=== PATIENT | female | born 1990 | race African-American/Black ===

== ENCOUNTER 2017-12-23 15:58 | Emergency (ER) | payer OTHER ==
[2017-12-23 16:08] VITALS: BP 139/79
--- NOTE | 2017-12-23 17:07 | ED Physician Documentation ---
PD HPI SKIN - Stated complaint Stated Complaint: R BREAST LUMP - Chief complaint Chief Complaint: General - History obtained from History obtained from: Patient - History of Present Illness Timing - onset: How many months ago (has noted a lump/firmness of tissue since February. It seems to be bigger the past few weeks. Not tender. No redness nor drainage. She was encouraged by friends/etc to get it checked, and so here today. No notable change in it the past few days per se.) Timing - duration: Months Timing - details: Gradual onset Location: Other (right medial breast with firm tissue area/lump. Has had prior breast reduction surgery few years ago and had not noted the lump right after surgery.) Quality / character: No: Itchy, Painful, Discolored, Draining Review of Systems Constitutional: denies: Fever, Chills Skin: denies: Rash PD PAST MEDICAL HISTORY - Past Medical History Cardiovascular: None Respiratory: None - Present Medications Home Medications: Ambulatory Orders Medication Instructions Recorded Confirmed Dextroamphetamine/Amphetamine 12/23/17 [Adderall 15 mg Tablet] Fluticasone [Flonase] 12/23/17 Medroxyprogesterone Acetate 12/23/17 12/23/17 [Depo-Provera] - Allergies Allergies/Adverse Reactions: Allergies Allergy/AdvReac Type Severity Reaction Status Date / Time nickel Allergy Rash Verified 12/23/17 16:08 thomas AdvReac Rash Verified 12/23/17 16:08 PD ED PE NORMAL - Vitals Vital signs reviewed: Yes - General General: Alert and oriented X 3, Well developed/nourished - Derm Derm: Normal color, Warm and dry, Other (right medial breast with area of firmness subcutaneously. Is not tender. No redness nor skin changes. It is adjacent to prior surgical scar (breast reduction) but not right at the scar line. Bedside U/S did not show any obvious abnormal tissue density nor cyst. ) Results - Vitals Vitals: Oxygen O2 Source Room air PD MEDICAL DECISION MAKING - ED course Complexity details: considered differential (It feels lik efibrous tissue and bedside U/S limited shows breast tissue architecture. No obvious cyst nor abscess. ), d/w patient Departure - Departure Disposition: 01 Home, Self Care Clinical Impression: Breast lump in female, Fibrous breast lumps Condition: Stable Record reviewed to determine appropriate education?: Yes Follow-Up: HERACLIO MCCARTHY MD [Primary Care Provider] - Comments: This feels like just fibrous breast tissue. The bedside ultrasound showed just fibrous tissue without any appearance of cysts or abnormal density. Follow-up with your primary care if it continues to feel enlarged or gets tender red or swollen. Discharge Date/Time: 12/23/17 17:45
== END 2017-12-23 17:45 | disposition home or self-care (01) ==
LOC: ED 15:58
DX: N63.0 Unspecified lump in unspecified breast (principal)
CPT/HCPCS: 99282

== ENCOUNTER 2018-03-13 16:56 | Emergency (ER) | payer OTHER ==
[2018-03-13 17:48] LABS: BASOPHILS # (AUTO) 0.1 10^3/uL (0.0-0.1); BASOPHILS % (AUTO) 1.3 %; EOSINOPHILS # (AUTO) 0.1 10^3/uL (0.0-0.7); EOSINOPHILS % (AUTO) 1.3 %; HGB - HEMOGLOBIN 13.3 g/dL (12.0-16.0); LYMPHOCYTES # (AUTO) 2.7 10^3/uL (1.5-3.5); LYMPHOCYTES % (AUTO) 39.5 %; MEAN CORPUSCULAR HEMOGLOBIN 27.4 pg (27.0-31.0); MEAN CORPUSCULAR HGB CONC 31.8 g/dL (32.0-36.0); MEAN CORPUSCULAR VOLUME 86.4 fL (81.0-99.0); MEAN PLATELET VOLUME 7.2 fL (7.9-10.8); MONOCYTES # (AUTO) 0.5 10^3/uL (0.0-1.0); MONOCYTES % (AUTO) 7.3 %; NEUTROPHILS # (AUTO) 3.4 10^3/uL (1.5-6.6); NEUTROPHILS % (AUTO) 50.6 %; PLT - PLATELET COUNT 392 10^3/uL (130-450); RED BLOOD COUNT 4.86 10^6/uL (4.20-5.40); RED CELL DISTRIBUTION WIDTH 12.8 % (12.0-15.0); WHITE BLOOD COUNT 6.8 x10^3/uL (4.8-10.8)
[2018-03-13 18:00] LABS: BILIRUBIN,URINE NEGATIVE (NEGATIVE); GLUCOSE, URINE (UA) NEGATIVE (NEGATIVE); KETONES,URINE (UA) NEGATIVE (NEGATIVE); LEUKOCYTE ESTERASE, URINE NEGATIVE (NEGATIVE); NITRITE,URINE NEGATIVE (NEGATIVE); OCCULT BLOOD,URINE NEGATIVE (NEGATIVE); PROTEIN,URINE NEGATIVE (NEGATIVE); UROBILINOGEN,URINE 0.2 (NORMAL) E.U./dL (NORMAL)
[2018-03-13 18:03] LABS: ALBUMIN 4.4 g/dL (3.2-5.5); ALBUMIN/GLOBULIN RATIO 1.3 (1.0-2.2); BILIRUBIN,TOTAL 0.7 mg/dL (0.2-1.0); CALCIUM 9.1 mg/dL (8.5-10.3); CREATININE 0.8 mg/dL (0.4-1.0); TOTAL PROTEIN 7.8 g/dL (6.7-8.2)
[2018-03-13 18:04] LABS: CLARITY,URINE CLEAR (CLEAR); HCG UR QUAL NEGATIVE
--- NOTE | 2018-03-13 19:41 | ED Physician Documentation ---
PD HPI ABD PAIN - Stated complaint Stated Complaint: RIGHT SIDE PAIN - Chief complaint Chief Complaint: Abd Pain - History obtained from History obtained from: Patient - History of Present Illness Timing - onset: How many days ago (few days ago, had some nausea and vomiting and upper abd pain. Seen by PCP and was tender upper abd, so scheduled for US which will be this coming Tuesday (?). Concern for gallstones clinically. Has had persistent and today worse pain, so here for evaluation.) Timing - duration: Days (few) Timing - details: Abrupt onset, Still present, Waxing and waning Quality: Cramping, Aching, Pain Location: RUQ, Epigastric Radiation: No: Chest, Lower back, Upper back Worsened by: Eating, Position, Palpation. No: Breathing Associated symptoms: Nausea, Vomiting (several days ago at onset of it, but only for 1/2 day). No: Fever, Diarrhea Similar symptoms before: Has not had sx before Recently seen: Clinic (3 days ago with concern for gallstones and scheduled for outpatient US but was not going to be until later this week or such.) Review of Systems Constitutional: denies: Fever, Chills, Myalgias Nose: denies: Rhinorrhea / runny nose, Congestion Throat: denies: Sore throat Respiratory: denies: Cough GI: reports: Abdominal Pain, Nausea. denies: Constipation, Diarrhea : denies: Dysuria, Frequency, Discharge Skin: denies: Rash PD PAST MEDICAL HISTORY - Past Medical History Cardiovascular: None Respiratory: None - Present Medications Home Medications: Ambulatory Orders Medication Instructions Recorded Confirmed Dextroamphetamine/Amphetamine 20 mg PO DAILY 12/23/17 03/13/18 [Adderall 15 mg Tablet] Fluticasone [Flonase] 1 spray IN DAILY 12/23/17 03/13/18 Medroxyprogesterone Acetate 150 mg IM ONCE 12/23/17 03/13/18 [Depo-Provera] Famotidine 20 mg PO DAILY #30 tablet 03/13/18 Sucralfate [Carafate] 1 gm PO ACHS #20 tablet 03/13/18 Tramadol HCl 50 mg PO Q6H PRN #15 tablet 03/13/18 - Allergies Allergies/Adverse Reactions: Allergies Allergy/AdvReac Type Severity Reaction Status Date / Time nickel Allergy Rash Verified 03/13/18 17:09 thomas AdvReac Rash Verified 03/13/18 17:09 PD ED PE NORMAL - Vitals Vital signs reviewed: Yes - General General: Alert and oriented X 3, No acute distress, Well developed/nourished - HEENT HEENT: PERRL (nonicteric), Ears normal, Pharynx benign - Neck Neck: Supple, no meningeal sign, No adenopathy - Cardiac Cardiac: RRR, No murmur - Respiratory Respiratory: Clear bilaterally - Abdomen Abdomen: Normal bowel sounds, Soft, Non distended, No organomegaly, Other (tender epigastric and RUQ area with mild guarding but no percussion nor rebound tenderness. ) - Female Female : Deferred - Rectal Rectal: Deferred - Back Back: No CVA TTP - Derm Derm: Normal color, Warm and dry - Neuro Neuro: Alert and oriented X 3, No motor deficit, Normal speech Results - Vitals Vitals: Oxygen O2 Source Room air - Labs Labs: Laboratory Tests 03/13/18 03/13/18 03/13/18 17:41 17:43 17:43 WBC 6.8 RBC 4.86 Hgb 13.3 Hct 42.0 MCV 86.4 MCH 27.4 MCHC 31.8 L RDW 12.8 Plt Count 392 MPV 7.2 L Neut # (Auto) 3.4 Lymph # (Auto) 2.7 [place] # (Auto) 0.5 Eos # (Auto) 0.1 Baso # (Auto) 0.1 Absolute Nucleated RBC 0.01 Nucleated RBC % 0.1 Sodium 138 Potassium 3.9 Chloride 103 Carbon Dioxide 25 Anion Gap 10.0 BUN 14 Creatinine 0.8 Estimated GFR (MDRD) 106 Glucose 89 Calcium 9.1 Total Bilirubin 0.7 AST 25 ALT 24 Alkaline Phosphatase 52 Total Protein 7.8 Albumin 4.4 Globulin 3.4 Albumin/Globulin Ratio 1.3 Lipase 31 Urine Color YELLOW Urine Clarity CLEAR Urine pH 7.0 Ur Specific [place] 1.015 Urine Protein NEGATIVE Urine Glucose (UA) NEGATIVE Urine Ketones NEGATIVE Urine Occult Blood NEGATIVE Urine Nitrite NEGATIVE Urine Bilirubin NEGATIVE Urine Urobilinogen 0.2 (NORMAL) Ur Leukocyte Esterase NEGATIVE Ur Microscopic Review NOT INDICATED Urine Culture Comments NOT INDICATED Urine HCG, Qual NEGATIVE - Rads (name of study) abd U/S RUQ Radiology: Prelim report reviewed (normal gallbladder), See rad report PD MEDICAL DECISION MAKING - ED course Complexity details: reviewed results, considered differential (she declined IV meds and opted for oral meds. Consider gastritis vs pancreatitis vs gallbladder colic. ), d/w patient Departure - Departure Disposition: 01 Home, Self Care Clinical Impression: Duodenitis Abdominal pain Qualifiers: Abdominal location: right upper quadrant Qualified Code(s): R10.11 - Right upper quadrant pain Gastritis Qualifiers: Gastritis type: superficial Chronicity: acute Gastritis bleeding: without bleeding Qualified Code(s): K29.00 - Acute gastritis without bleeding Condition: Stable Record reviewed to determine appropriate education?: Yes Instructions: ED Gastritis Follow-Up: PHILIP Landon [Provider Group] Prescriptions: Famotidine 20 mg PO DAILY #30 tablet Sucralfate [Carafate] 1 gm PO ACHS #20 tablet Tramadol HCl 50 mg PO Q6H PRN #15 tablet PRN Reason: Pain Comments: Your blood tests are normal as is your gallbladder ultrasound. No signs of pancreatitis, liver problems, gallbladder problems. Presume then the ear pain is from irritation of the stomach or the initial part of the intestine (gastritis/duodenitis). This likely got irritated from the initial vomiting and illness you had at the beginning. We will treat this with some acid reducing medicine such as famotidine daily and something to coat the stomach (Carafate 4 times a day). To that add Tylenol or tramadol if needed for pains. This should heal up and be better over the next several days to week. Follow-up if not improved by the end of the week. Discharge Date/Time: 03/13/18 22:01
[2018-03-13] MEDS ORDERED: HYDROcod/ACETAM 5/325 MG TABLET PO STA (19:53)
[2018-03-13] MEDS ORDERED: MAG HYDROX/AL HYDROX/SIMETH 30 ML UDC PO STA (19:53)
[2018-03-13] MEDS ORDERED: FAMOTIDINE 20 MG TABLET PO STA (19:53)
[2018-03-13] MEDS ORDERED: ONDANSETRON ODT 4 MG TABLET TL STA (19:53)
--- NOTE | 2018-03-13 21:45 | Ultrasound Report ---
Reason: RUQ pain for few days Procedure Date: 03/13/2018 Accession Number: [id number] / [id number] Procedure: US - Abdomen Limited CPT Code: FULL RESULT: EXAM: ABDOMEN ULTRASOUND LIMITED, RUQ EXAM DATE: 03/13/2018 09:03 PM. CLINICAL HISTORY: RUQ pain for few days. COMPARISON: None. TECHNIQUE: Real-time scanning was performed with static images obtained. FINDINGS: Liver: Submitted images of liver demonstrate no focal lesions. Main portal vein flow: Hepatopetal. Gallbladder: No stones, wall thickening, or sonographic Klein's sign. Biliary System: CBD measures 3 mm. No intrahepatic or extrahepatic ductal dilatation. Other: The visualized pancreas and right kidney are unremarkable. IMPRESSION: Negative right upper quadrant ultrasound. RADIA
[2018-03-13 21:55] VITALS: BP 111/66
== END 2018-03-13 22:01 | disposition home or self-care (01) ==
LOC: ED 16:56
DX: K29.80 Duodenitis without bleeding (principal); K29.00 Acute gastritis without bleeding
CPT/HCPCS: 36415; 76705; 80053; 81003; 81025; 83690; 85025; 99283; A9270; Q0162; 81001; 87086

== ENCOUNTER 2018-04-25 08:51 | Emergency (ER) | payer OTHER ==
[2018-04-25 09:13] VITALS: BP 108/68
[2018-04-25] MEDS ORDERED: ALBUTEROL NEB 2.5 MG/3 ML INH STA (09:38)
[2018-04-25] MEDS ORDERED: KETOROLAC 60 MG/2 ML VIAL IM STA (09:38)
--- NOTE | 2018-04-25 10:05 | XRAY Report ---
Reason: cough Procedure Date: 04/25/2018 Accession Number: [id number] / [id number] Procedure: XR - Chest 2 View X-Ray CPT Code: 97778 FULL RESULT: EXAM: CHEST RADIOGRAPHY EXAM DATE: 04/25/2018 09:56 AM. CLINICAL HISTORY: Cough. COMPARISON: None. TECHNIQUE: 2 views. FINDINGS: Mild increased lung markings are noted in the right lung base that may represent an infiltrate or atelectasis. There is no pleural effusion or pneumothorax seen. The heart is not enlarged. IMPRESSION: Increased lung markings in the right lung base that may represent an infiltrate or atelectasis. RADIA
--- NOTE | 2018-04-25 10:14 | ED Physician Documentation ---
History of Present Illness - Stated complaint Stated Complaint: FLU LIKE SX - Chief complaint Chief Complaint: Fever - History obtained from History obtained from: Patient - History of Present Illness Timing: Yesterday Pain level max: 7 Pain level now: 7 - Additonal information Additional information: 27-year-old female presents to the emergency department after being diagnosed with flu earlier today at the [facility]. Has a headache as well as cough. Has had pneumonia in the past and used inhalers. Is not using them now Review of Systems Constitutional: reports: Fever. 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 HEENT: None Psych: ADD/ADHD Musculoskeletal: None Derm: None - Past Surgical History Past Surgical History: Yes - Present Medications Home Medications: Ambulatory Orders Medication Instructions Recorded Confirmed Dextroamphetamine/Amphetamine 20 mg PO DAILY 12/23/17 03/13/18 [Adderall 15 mg Tablet] Fluticasone [Flonase] 1 spray IN DAILY 12/23/17 03/13/18 Albuterol Sulf [Ventolin Hfa 1 - 2 puffs INH Q4HR PRN #1 inhaler 04/25/18 Inhaler] Doxycycline Hyclate 100 mg PO BID #20 capsule 04/25/18 Ibuprofen [Motrin] 800 mg PO Q8H PRN #30 tablet 04/25/18 - Allergies Allergies/Adverse Reactions: Allergies Allergy/AdvReac Type Severity Reaction Status Date / Time nickel Allergy Rash Verified 04/25/18 09:13 thomas AdvReac Rash Verified 04/25/18 09:13 - Social History Does the pt smoke?: Yes Smoking Status: Current every day smoker Does the pt drink ETOH?: Yes Does the pt have substance abuse?: No - Immunizations Immunizations are current?: Yes - POLST Patient has POLST: No PD ED PE NORMAL - Vitals Vital signs reviewed: Yes - General General: Alert and oriented X 3, No acute distress - HEENT HEENT: PERRL, Ears normal, Moist mucous membranes, Pharynx benign - Neck Neck: Supple, no meningeal sign, No bony TTP, Other (FROM without pain) - Cardiac Cardiac: RRR, Strong equal pulses - Respiratory Respiratory: No respiratory distress, Other (Rhonchi Bibasilar) - Abdomen Abdomen: Soft, Non tender, Non distended - Derm Derm: Warm and dry, No rash - Neuro Neuro: Alert and oriented X 3, No motor deficit, No sensory deficit Results - Vitals Vitals: Vital Signs - 24 hr 04/25/18 04/25/18 04/25/18 09:10 10:04 10:27 Temperature 37.1 C Heart Rate 122 H 145 H 130 H Respiratory 18 20 22 Rate Blood Pressure 108/68 O2 Saturation 98 Oxygen O2 Source Room air - Rads (name of study) Chest x-ray Radiology: Prelim report reviewed, EMP read contemporaneously, See rad report (Increased lung markings in the right lung base may represent infiltrate or atelectasis) PD MEDICAL DECISION MAKING - ED course Complexity details: reviewed results, re-evaluated patient, considered differential, d/w patient ED course: 27-year-old female presents to the emergency department with influenza a diagnosed earlier, also has pneumonia on chest x-ray. Feels better after albuterol treatment and Toradol. No evidence of meningitis. Will place on antibiotics for the pneumonia. She is well-appearing, nontoxic. Patient counseled regarding signs and symptoms for which I believe and urgent re- evaluation would be necessary. Patient with good understanding of and agreement to plan and is comfortable going home at this time This document was made in part using voice recognition software. While efforts are made to proofread this document, sound alike and grammatical errors may occur. Departure - Departure Disposition: 01 Home, Self Care Clinical Impression: Influenza A Pneumonia Qualifiers: Pneumonia type: due to unspecified organism Laterality: right Lung location: lower lobe of lung Qualified Code(s): J18.1 - Lobar pneumonia, unspecified organism Condition: Good Instructions: ED Pneumonia Adult Follow-Up: your,doctor in 1 week [Other] Prescriptions: Albuterol Sulf [Ventolin Hfa Inhaler] 1 - 2 puffs INH Q4HR PRN #1 inhaler PRN Reason: Shortness Of Air/Wheezing Doxycycline Hyclate 100 mg PO BID #20 capsule Ibuprofen [Motrin] 800 mg PO Q8H PRN #30 tablet PRN Reason: PAIN &/OR FEVER Comments: Go home and rest. Drink plenty of fluids. Return if you worsen. Forms: Activity restrictions Discharge Date/Time: 04/25/18 10:27
== END 2018-04-25 10:27 | disposition home or self-care (01) ==
LOC: ED 08:51
DX: J10.00 Influenza due to other identified influenza virus with unspecified type of pneumonia (principal); F17.200 Nicotine dependence, unspecified, uncomplicated; Z87.01 Personal history of pneumonia (recurrent)
CPT/HCPCS: 71046; 94640; 94664; 96372; 99283

== ENCOUNTER 2019-01-22 11:53 | Emergency (ER) | payer OTHER ==
--- NOTE | 2019-01-22 12:57 | ED Physician Documentation ---
History of Present Illness - Stated complaint Stated Complaint: FEMALE - Chief complaint Chief Complaint: General - Additonal information Additional information: This is a 28-year-old female with a history of ADHD and endometriosis who pr esents with abdominal cramping, persistent bleeding, and inability to feel IUD strings. [place] name of the Provider who placed the IUD. She states that since then she has had some bleeding which started light and then became heavier Over the last several days. She was unable to fill the strings of the IUD when she is checked for it. She also has some crampy lower abdominal pain which is in the bilateral lower quadrants. She denies concern for sexual transmitted infection, denies any purulent discharge. 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 HEENT: None Psych: ADD/ADHD Musculoskeletal: None Derm: None - Past Surgical History Past Surgical History: Yes - Present Medications Home Medications: Ambulatory Orders Medication Instructions Recorded Confirmed Dextroamphetamine/Amphetamine 20 mg PO DAILY 12/23/17 03/13/18 [Adderall 15 mg Tablet] Fluticasone [Flonase] 1 spray IN DAILY 12/23/17 03/13/18 Albuterol Sulf [Ventolin Hfa 1 - 2 puffs INH Q4HR PRN #1 inhaler 04/25/18 Inhaler] Doxycycline Hyclate 100 mg PO BID #20 capsule 04/25/18 Ibuprofen [Motrin] 800 mg PO Q8H PRN #30 tablet 04/25/18 Ondansetron Odt [Zofran] 4 mg TL Q6H PRN #10 tablet 01/22/19 - Allergies Allergies/Adverse Reactions: Allergies Allergy/AdvReac Type Severity Reaction Status Date / Time nickel Allergy Rash Verified 04/25/18 09:13 thomas AdvReac Rash Verified 04/25/18 09:13 - Social History Does the pt smoke?: Yes Smoking Status: Current every day smoker Does the pt drink ETOH?: Yes Does the pt have substance abuse?: No - Immunizations Immunizations are current?: Yes - POLST Patient has POLST: No PD ED PE NORMAL - Vitals Vital signs reviewed: Yes - General General: Alert and oriented X 3 - HEENT HEENT: Atraumatic - Cardiac Cardiac: RRR - Respiratory Respiratory: No respiratory distress, Clear bilaterally - Abdomen Abdomen: Soft, Other (Abdomen is tender in the bilateral lower quadrants and the suprapubic region, no upper abdominal tenderness) - Female Female : Other (Exam chaperoned by RN: External vulva normal in appearance. On speculum exam there is no blood in the vaginal vault. Cervix is normal in appearance and closed, non-tender. No IUD strings seen from the Os. No erythema or purulence.) - Derm Derm: Warm and dry - Neuro Neuro: Alert and oriented X 3 Results - Vitals Vitals: Oxygen O2 Source Room air - Labs Labs: Laboratory Tests 01/22/19 01/22/19 01/22/19 13:02 13:02 13:02 WBC 9.1 RBC 4.99 Hgb 14.0 Hct 44.4 MCV 89.0 MCH 28.1 MCHC 31.5 L RDW 13.2 Plt Count 377 MPV 9.5 Neut # (Auto) 7.0 H Lymph # (Auto) 1.4 L [place] # (Auto) 0.6 Eos # (Auto) 0.0 Baso # (Auto) 0.1 Absolute Nucleated RBC 0.00 Nucleated RBC % 0.0 PT 13.2 H INR 1.2 Sodium 139 Potassium 3.6 Chloride 102 Carbon Dioxide 26 Anion Gap 11.0 BUN 16 Creatinine 0.9 Estimated GFR (MDRD) 92 Glucose 95 Calcium 9.8 Total Bilirubin 0.8 AST 22 ALT 20 Alkaline Phosphatase 52 Total Protein 8.5 H Albumin 5.0 Globulin 3.5 Albumin/Globulin Ratio 1.4 Lipase 32 Urine Color Urine Clarity Urine pH Ur Specific [place] Urine Protein Urine Glucose (UA) Urine Ketones Urine Occult Blood Urine Nitrite Urine Bilirubin Urine Urobilinogen Ur Leukocyte Esterase Ur Microscopic Review Urine Culture Comments Urine HCG, Qual 01/22/19 01/22/19 13:53 13:53 WBC RBC Hgb Hct MCV MCH MCHC RDW Plt Count MPV Neut # (Auto) Lymph # (Auto) [place] # (Auto) Eos # (Auto) Baso # (Auto) Absolute Nucleated RBC Nucleated RBC % PT INR Sodium Potassium Chloride Carbon Dioxide Anion Gap BUN Creatinine Estimated GFR (MDRD) Glucose Calcium Total Bilirubin AST ALT Alkaline Phosphatase Total Protein Albumin Globulin Albumin/Globulin Ratio Lipase Urine Color COLORLESS Urine Clarity CLEAR Urine pH 6.0 Ur Specific [place] 1.025 1.025 Urine Protein NEGATIVE Urine Glucose (UA) NEGATIVE Urine Ketones 15 H Urine Occult Blood TRACE-INTA Urine Nitrite NEGATIVE Urine Bilirubin NEGATIVE Urine Urobilinogen 0.2 (NORMAL) Ur Leukocyte Esterase NEGATIVE Ur Microscopic Review NOT INDICATED Urine Culture Comments NOT INDICATED Urine HCG, Qual NEGATIVE - Rads (name of study) Pelvic US Radiology: Other (IUD in proper position within the uterus, normal blood flow to both ovaries.) PD MEDICAL DECISION MAKING - ED course Complexity details: considered differential (Endometritis, pelvic/uterine cramping, displaced IUD, expelled IUD, UTI, STI, appendicitis, ovarian torsion.) ED course: Pt is non-toxic appearing, tachycardic on arrival but this spontaneously improv es. Speculum exam shows no bleeding or signs of infection, IUD strings are not visible. She is low risk for STI by history. CBC, abdominal panel unremarkable. Urine negative for infection, urine hCG also negative. Ultrasound shows IUD in expected position, normal blood flow to the ovaries. Patient is well-appearing on repeat examination, her abdomen remains benign with no focal RLQ tenderness, she feels hungry, and is ready to go home. Her results are reassuring at this time and symptoms may be secondary from cramping from IUD insertion but I discussed the diagnostic uncertainty and that she needs close OB follow up and return to the ED with any worsening. Pt agrees and was discharged home. Departure - Departure Disposition: 01 Home, Self Care Clinical Impression: Lower abdominal pain Condition: Good Follow-Up: Your,OBGYN [Other] - Within 1 week Prescriptions: Ondansetron Odt [Zofran] 4 mg TL Q6H PRN #10 tablet PRN Reason: Nausea / Vomiting Comments: You were seen today for lower abdominal pain as well as inability to find the strings of the IUD. I also did not see the strings of the IUD, but your ultrasound shows the IUD is in proper position within the uterus. It also showed normal blood flow to your ovaries. Your labs including your red blood cell count and white blood cell count were normal today, and your your urine test did not show any signs of infection. You may be having some pain and bleeding secondary to the IUD, please follow-up with your [facility] doctor in the next week to ensure this is improving. If you are having worsening symptoms such as severe abdominal pain or persistent vomiting or fever, return to the emergency department. You may take Tylenol and ibuprofen for your pain, and I am prescribing you a small number of Zofran in case you are having nausea. Discharge Date/Time: 01/22/19 17:55
[2019-01-22 13:12] LABS: BASOPHILS # (AUTO) 0.1 10^3/uL (0.0-0.1); BASOPHILS % (AUTO) 0.5 %; EOSINOPHILS % (AUTO) 0.1 %; LYMPHOCYTES # (AUTO) 1.4 10^3/uL (1.5-3.5); LYMPHOCYTES % (AUTO) 15.8 %; MEAN CORPUSCULAR HEMOGLOBIN 28.1 pg (27.0-31.0); MEAN CORPUSCULAR HGB CONC 31.5 g/dL (32.0-36.0); MEAN PLATELET VOLUME 9.5 fL (7.9-10.8); MONOCYTES # (AUTO) 0.6 10^3/uL (0.0-1.0); MONOCYTES % (AUTO) 6.4 %; NEUTROPHILS % (AUTO) 76.9 %; PLT - PLATELET COUNT 377 10^3/uL (130-450); RED BLOOD COUNT 4.99 10^6/uL (4.20-5.40); RED CELL DISTRIBUTION WIDTH 13.2 % (12.0-15.0); WHITE BLOOD COUNT 9.1 x10^3/uL (4.8-10.8)
[2019-01-22 13:19] LABS: INR 1.2 (0.8-1.2); PT - PROTHROMBIN TIME 13.2 secs (9.9-12.6)
[2019-01-22 13:21] LABS: ALBUMIN/GLOBULIN RATIO 1.4 (1.0-2.2); BILIRUBIN,TOTAL 0.8 mg/dL (0.2-1.0); CALCIUM 9.8 mg/dL (8.5-10.3); CREATININE 0.9 mg/dL (0.4-1.0); TOTAL PROTEIN 8.5 g/dL (6.7-8.2)
[2019-01-22 14:36] LABS: BILIRUBIN,URINE NEGATIVE (NEGATIVE); GLUCOSE, URINE (UA) NEGATIVE (NEGATIVE); KETONES,URINE (UA) 15 mg/dL (NEGATIVE); LEUKOCYTE ESTERASE, URINE NEGATIVE (NEGATIVE); NITRITE,URINE NEGATIVE (NEGATIVE); OCCULT BLOOD,URINE TRACE-INTA (NEGATIVE); PROTEIN,URINE NEGATIVE (NEGATIVE); UROBILINOGEN,URINE 0.2 (NORMAL) E.U./dL (NORMAL)
[2019-01-22 14:37] LABS: CLARITY,URINE CLEAR (CLEAR)
[2019-01-22 14:39] LABS: HCG UR QUAL NEGATIVE
--- NOTE | 2019-01-22 16:55 | Ultrasound Report ---
Reason: Pelvic pain, IUD placed in the last 2 weeks Procedure Date: 01/22/2019 Accession Number: [id number] / [id number] Procedure: US - Pelvic w/Transvag+Doppler Comp CPT Code: Final Report FULL RESULT: EXAM: PELVIC ULTRASOUND WITH DOPPLERS CLINICAL HISTORY: Pelvic pain, IUD placed in the last 2 weeks. History of endometriosis. LMP 12/16/2018. COMPARISON: None. TECHNIQUE: Realtime transabdominal imaging performed to identify the uterus and adnexa and as an overview of other pelvic structures, followed by transvaginal imaging for better assessment of the endometrium and adnexa, with static image documentation. Color flow imaging and Doppler spectral analysis was performed to evaluate blood flow to the ovaries given pelvic pain and clinical concern for ovarian torsion. FINDINGS: Uterus: 6.2 x 3 x 4.4 cm, volume 41.9 cc. Retroverted position. Normal overall size and echotexture. Masses: None. Endometrium: 5 mm. Intrauterine device is present centrally located in the endometrial cavity in expected position. Cervix: Unremarkable. Right Ovary: 2.3 x 2 x 3.1 cm, volume 7.5 cc. Normal echotexture. Normal follicles. Arterial and venous blood flow are present. PSV 9.1 cm/sec. RI 0.7. Adnexa are unremarkable. Left Ovary: 2.5 x 1.6 x 2.6 cm, volume 5.4 cc. Normal echotexture. Normal follicles. Arterial and venous blood flow are present. PSV 6.6 cm/sec. RI 0.5. Adnexa are unremarkable. Free Fluid: Trace pelvic free fluid. Other: None. IMPRESSION: 1. Intrauterine device centrally located in the endometrial cavity in expected position. Otherwise normal sonographic appearance of the uterus. 2. Normal sonographic appearance of the ovaries. Normal ovarian volume. Arterial and venous blood flow are present to the ovaries bilaterally. RADIA
[2019-01-22 17:17] VITALS: BP 131/115
== END 2019-01-22 17:55 | disposition home or self-care (01) ==
LOC: ED 11:53
DX: R10.31 Right lower quadrant pain (principal); R10.32 Left lower quadrant pain; Z30.431 Encounter for routine checking of intrauterine contraceptive device; F90.9 Attention-deficit hyperactivity disorder, unspecified type; F17.200 Nicotine dependence, unspecified, uncomplicated
CPT/HCPCS: 36415; 76830; 76856; 80053; 81001; 81003; 81025; 83690; 85025; 85610; 87086; 93975; 99283; 99284

== ENCOUNTER 2019-07-28 11:45 | Outpatient (CLI) | payer OTHER ==
[2019-07-28 12:33] LABS: BASOPHILS # (AUTO) 0.1 10^3/uL (0.0-0.1); BASOPHILS % (AUTO) 1.2 %; EOSINOPHILS % (AUTO) 0.3 %; HGB - HEMOGLOBIN 14.8 g/dL (12.0-16.0); LYMPHOCYTES # (AUTO) 1.5 10^3/uL (1.5-3.5); LYMPHOCYTES % (AUTO) 25.8 %; MEAN CORPUSCULAR HEMOGLOBIN 28.6 pg (27.0-31.0); MEAN CORPUSCULAR HGB CONC 32.1 g/dL (32.0-36.0); MEAN CORPUSCULAR VOLUME 89.2 fL (81.0-99.0); MEAN PLATELET VOLUME 9.5 fL (7.9-10.8); MONOCYTES # (AUTO) 0.4 10^3/uL (0.0-1.0); MONOCYTES % (AUTO) 6.6 %; NEUTROPHILS # (AUTO) 3.9 10^3/uL (1.5-6.6); NEUTROPHILS % (AUTO) 65.8 %; PLT - PLATELET COUNT 418 10^3/uL (130-450); RED BLOOD COUNT 5.17 10^6/uL (4.20-5.40); RED CELL DISTRIBUTION WIDTH 12.2 % (12.0-15.0); WHITE BLOOD COUNT 5.9 x10^3/uL (4.8-10.8)
== END 2019-07-28 11:46 | disposition home or self-care (01) ==
LOC: LAB 11:45
PROVIDERS: ATTEND Obstetrics & Gynecology
DX: R10.2 Pelvic and perineal pain (principal); G89.29 Other chronic pain
CPT/HCPCS: 36415; 85025; 86850; 86900; 86901

== ENCOUNTER 2019-07-30 13:17 | Day surgery (SDC) | payer OTHER ==
[2019-07-30] MEDS ORDERED: ROCURONIUM 50 MG/5 ML VIAL IVP ONE (13:18)
[2019-07-30] MEDS ORDERED: PROPOFOL 200 MG/20 ML VIAL IVP ONE (13:18)
[2019-07-30] MEDS ORDERED: ONDANSETRON 4 MG/2 ML VIAL IVP ONE (13:18)
[2019-07-30] MEDS ORDERED: fentaNYL 100 MCG/2 ML VIAL IVP ONE (13:18)
[2019-07-30] MEDS ORDERED: LACTATED RINGERS 1,000 ML IV ONE ×2 (13:57→17:51)
[2019-07-30 14:25] LABS: HCG UR QUAL NEGATIVE
--- NOTE | 2019-07-30 14:28 | ANESTHESIA ---
Pre-Anesthesia VS, & Labs - Diagnosis dysmenorrhea, failed hormonal medication - Procedure Diagnostic laparoscopy, excision fulguration of endometriosis Vital Signs: Temp Pulse Resp BP Pulse Ox 36.6 C 93 20 134/86 H 100 07/30/19 13:34 07/30/19 13:34 07/30/19 13:34 07/30/19 13:34 07/30/19 13:34 Height 5 ft 1.5 in Weight (kg) 72 kg Body Mass Index 27.8 - NPO >8 hours - Is Patient ?: No - Lab Results Lab results reviewed: Yes Home Medications and Allergies Home Medications: Ambulatory Orders Levonorgestrel-Ethin Estradiol [Orsythia-28 Tablet] 1 tab PO DAILY 07/30/19 Fluticasone [Flonase] 1 spray IN DAILY 12/23/17 Acetaminophen [Tylenol] 650 mg PO Q6H PRN 05/01/19 Dextroamphetamine/Amphetamine [Adderall Xr 20 mg Capsule] 20 mg PO DAILY 05/01/19 Dextroamphetamine/Amphetamine [Adderall Xr 5 mg Capsule] 5 mg PO DAILY 05/01/19 Escitalopram Oxalate [Lexapro] 5 mg PO DAILY 05/01/19 Escitalopram [Lexapro] 10 mg PO DAILY 05/01/19 Levonorgestrel 20 Mcg/24H [Mirena] 1 each IY DAILY 05/01/19 Levonorgestrel-Ethin Estradiol [Orsythia-28 Tablet] 1 tab PO DAILY 07/30/19 Allergies/Adverse Reactions: Allergies Allergy/AdvReac Type Severity Reaction Status Date / Time nickel Allergy Rash Verified 07/24/19 15:08 thomas AdvReac Rash Verified 07/24/19 15:08 Anes History & Medical History - Anesthetic History Anesthesia Complications: reports: No previous complications Family history of Anesthesia Complications: Denies Family history of Malignant Hyperthermia: Denies - Medical History Cardiovascular: reports: Hypertension Pulmonary: reports: None Gastrointestinal: reports: None Urinary: reports: Other Neuro: reports: None Musculoskeletal: reports: None Endocrine/Autoimmune: reports: None Blood Disorders: reports: None Skin: reports: None Smoking Status: Current every day smoker (vape) - Surgical History General:  Gynecologic: Other (breast reduction) Exam General: Alert, Oriented x3, Cooperative Dental: WNL Mouth Openin Fingerbreadth Neck Mobility: Normal Mallampati classification: I Thyromental Distance: greater than 6 cm Respiratory: Lungs clear, Normal breath sounds, No respiratory distress Cardiovascular: Regular rate Neurological: Normal speech Mental/Cognitive Status: Alert/Oriented X3, Normal for patient Cognitive Status: Within normal limits Plan Anesthesia Type: General Consent for Procedure(s) Verified and Reviewed: Yes Code Status: Attempt Resuscitation ASA classification: 2-Mild systemic disease Is this case an emergency?: No
[2019-07-30] MEDS ORDERED: BUPIVACAINE 0.25% PF 30 ML VIAL ONE (16:42)
[2019-07-30] MEDS ORDERED: oxyCODONE 5 MG TABLET PO PRN (17:51)
[2019-07-30] MEDS ORDERED: ONDANSETRON 4 MG/2 ML VIAL IVP PRN (17:51)
--- NOTE | 2019-07-30 17:57 | OPERATIVE REPORT ---
Operative Report - General Procedure Date: 07/30/19 Planned Procedure: diagnostic laparoscopy with possible fulguration or excision of endometriosis, IUD removal Pre-Op Diagnosis: chronic pelvic pain Procedure Performed: operative laparoscopy with excision and fulguration of endometriosis, IUD removal Post Op Diagnosis: endometriosis - Procedure Note Primary Surgeon: Lucita Abdul Secondary Surgeon: Kendall Tracy Anesthesia Provider: Cristi Wills Anesthesia Technique: General ET tube Pathology: peritoneal biopsy, left ovarian fossa IV Fluids (mL): 200 Estimated Blood Loss (mL): 5 Urine Output (mL): 0 Indications: chronic pelvic pain, failed medical management Findings: Normal liver edge and stomach. Normal appearing uterus, bilateral fallopian tubes, ovaries; small simple cyst on left ovary. Small red-purple vesicle on peritoneum in left ovarian fossa, excised sharply. Small red vesicle on right abdominal wall above iliac crest, fulgurated. Appendix normal in appearance but densely adhered to right abdominal sidewall. Complications: none - Other Other Information/Narrative: After informed consent was assured, the patient was taken to the operating room where anesthesia was induced. Patient was placed in low dorsal lithotomy. An exam under anesthesia revealed a small anteverted uterus. The patient was prepped and draped in the usual sterile fashion. A surgical timeout was performed. A speculum was inserted into the vagina. IUD strings were not visualized; a Peon clamp was passed through the cervix, grasped the IUD strings and the IUD was removed intact with gentle traction. A hulka uterine manipulator was inserted through the cervix to the fundus and the single tooth of the tenaculum was used to grasp the cervix. 0.25% marcaine plain was injected at the site of the incision. An incision was made at the umbilicus and the fascia and peritoneum were entered under direct visualization with the laparoscope. The abdomen was insufflated. Inspection of the bowel immediately under the entry site revealed no injury to the viscera. Marcaine was then injected on the right lateral side 2 cm superior and medial to the anterior superior iliac spine. An incision was made and a 5 mm port was placed through the incision under visualization with the laparoscope. A third 5 mm port was placed in a similar fashion on the left. Survey of the abdomen and pelvis revealed a normal liver edge and gallbladder, normal appendix densely scarred to right abdominal sidewall and normal ovaries bilaterally with small simple cyst on left ovary. A red-purple vesicle consistent with endometriotic lesion was seen in the left ovarian fossa. This was grasped with [place] forceps and sharply excised, then passed off the field to send to pathology. Cautery was applied to the excision bed with good hemostasis obtained. A second lesion was seen on the right abdominal sidewall which was not accessible to biopsy but was fulgurated with cautery. Increased vascularity of the peritoneum in the rectouterine space and vesicouterine space was noted. The trochars were removed from the abdomen. Port sites were closed with 4-0 monocryl, and Dermabond skin adhesive were used to cover the lateral port sites. The hulka clip was removed from the uterus. The pt was taken to PACU in stable condition.
[2019-07-30] MEDS: HYDROmorphone 0.5 MG/0.5 ML SYRINGE ONE ×2 (18:03→18:08)
[2019-07-30] MEDS ORDERED: KETOROLAC 15 MG/ML VIAL ONE (18:05)
[2019-07-30] MEDS ORDERED: HYDROmorphone 0.5 MG/0.5 ML SYRINGE ONE (18:21)
[2019-07-30 19:55] VITALS: BP 130/80
== END 2019-07-30 20:07 | disposition home or self-care (01) ==
LOC: SDS 13:17 → ICU 18:29 → SDS 20:07
PROVIDERS: ATTEND Obstetrics & Gynecology
PROC: 0UPD7HZ Removal of Contraceptive Device from Uterus and Cervix, Via Natural or Artificial Opening (ICD-10-PCS; 2019-07-30)
PROC: 0WBH4ZZ Excision of Retroperitoneum, Percutaneous Endoscopic Approach (ICD-10-PCS; principal; 2019-07-30 13:30)
DX: R10.2 Pelvic and perineal pain (principal); N80.3 Endometriosis of pelvic peritoneum; N83.292 Other ovarian cyst, left side; I10 Essential (primary) hypertension; F17.290 Nicotine dependence, other tobacco product, uncomplicated
CPT/HCPCS: 58301; 58662; 81025; J1170; J7120

== ENCOUNTER 2019-08-27 15:32 | Emergency (ER) | payer OTHER ==
[2019-08-27] MEDS ORDERED: predniSONE 20 MG TABLET PO STA (16:26)
[2019-08-27] MEDS ORDERED: IBUPROFEN 800 MG TABLET PO STA (16:26)
--- NOTE | 2019-08-27 16:28 | ED Physician Documentation ---
History of Present Illness - Stated complaint Stated Complaint: L LEG CRAMPS & NUMBNESS - Chief complaint Chief Complaint: Ext Problem - History obtained from History obtained from: Patient - Additonal information Additional information: She is almost exactly a month out from a laparoscopy for endometriosis. She started her cycle today now has pelvic pain but she also notes tingling in the left leg and less of the right leg. She also has low back pain. Of note the tingling is not a new phenomenon for her and she is had it on and off for a while. She denies saddle anesthesia, incontinence. No fevers. No chest pain or trouble breathing. She called her OB who sent her here to rule out DVT. No history of same. Review of Systems Constitutional: denies: Fever, Chills Eyes: reports: Reviewed and negative Ears: reports: Reviewed and negative Nose: reports: Reviewed and negative PD PAST MEDICAL HISTORY - Past Medical History Cardiovascular: Hypertension Respiratory: None Neuro: None Endocrine/Autoimmune: None GI: None WORSTED WINDER: Endometriosis : Other HEENT: None Psych: Depression, Anxiety Musculoskeletal: None Derm: None - Past Surgical History Past Surgical History: Yes General:  /WORSTED WINDER: Other - Present Medications Home Medications: Ambulatory Orders Medication Instructions Recorded Confirmed Fluticasone [Flonase] 1 spray IN DAILY 12/23/17 07/30/19 Ibuprofen [Motrin] 800 mg PO Q8H PRN #30 tablet 04/25/18 07/30/19 Acetaminophen [Tylenol] 650 mg PO Q6H PRN 05/01/19 05/01/19 Dextroamphetamine/Amphetamine 20 mg PO DAILY 05/01/19 07/30/19 [Adderall Xr 20 mg Capsule] Dextroamphetamine/Amphetamine 5 mg PO DAILY 05/01/19 07/30/19 [Adderall Xr 5 mg Capsule] Escitalopram Oxalate [Lexapro] 5 mg PO DAILY 05/01/19 07/30/19 Escitalopram [Lexapro] 10 mg PO DAILY 05/01/19 07/30/19 Levonorgestrel 20 Mcg/24H [Mirena] 1 each IY DAILY 05/01/19 07/30/19 Levonorgestrel-Ethin Estradiol 1 tab PO DAILY 07/30/19 07/30/19 [Orsythia-28 Tablet] predniSONE [Deltasone] 20 mg PO [id number] #21 tab 08/27/19 - Allergies Allergies/Adverse Reactions: Allergies Allergy/AdvReac Type Severity Reaction Status Date / Time codeine Allergy Rash Verified 08/27/19 15:38 nickel Allergy Rash Verified 07/24/19 15:08 thomas AdvReac Rash Verified 07/24/19 15:08 - Social History Does the pt smoke?: Yes Smoking Status: Current every day smoker Does the pt drink ETOH?: Yes Does the pt have substance abuse?: No - Immunizations Immunizations are current?: Yes - POLST Patient has POLST: No PD ED PE NORMAL - Vitals Vital signs reviewed: Yes - General General: Alert and oriented X 3, No acute distress - HEENT HEENT: PERRL, EOMI - Neck Neck: Supple, no meningeal sign, No bony TTP - Abdomen Abdomen: Normal bowel sounds, Soft, Non tender - Back Back: No spinal TTP, Other (No edema or tenderness of the calves on either side. She does have some mild numbness in a left L4 distribution consistent with a radiculopathy. Otherwise symmetric reflexes and strength throughout the lower extremities. Normal gait.) - Neuro Neuro: Alert and oriented X 3, Normal speech Results - Vitals Vitals: Vital Signs - 24 hr 08/27/19 15:34 Temperature 36.7 C Heart Rate 120 H Respiratory 18 Rate Blood Pressure 148/90 H O2 Saturation 99 Oxygen O2 Source Room air - Labs Labs: Laboratory Tests 08/27/19 08/27/19 08/27/19 16:22 16:35 16:35 WBC 9.9 RBC 4.42 Hgb 12.4 Hct 38.9 MCV 88.0 MCH 28.1 MCHC 31.9 L RDW 13.1 Plt Count 374 MPV 9.6 Neut # (Auto) 7.5 H Lymph # (Auto) 1.8 [place] # (Auto) 0.5 Eos # (Auto) 0.0 Baso # (Auto) 0.1 Absolute Nucleated RBC 0.00 Nucleated RBC % 0.0 VBG pH VBG pCO2 VBG pO2 VBG HCO3 VBG Total CO2 VBG O2 Saturation VBG Base Excess Sodium 135 Potassium 3.2 L Chloride 97 L Carbon Dioxide 23 Anion Gap 15.0 H BUN 10 Creatinine 0.8 Estimated GFR (MDRD) 104 Glucose 84 Calcium 9.1 Total Bilirubin 1.0 AST 22 ALT 19 Alkaline Phosphatase 46 Total Protein 7.6 Albumin 4.5 Globulin 3.1 Albumin/Globulin Ratio 1.5 Lipase 24 Urine Color YELLOW Urine Clarity CLEAR Urine pH 6.0 Ur Specific Henry >=1.030 H Urine Protein NEGATIVE Urine Glucose (UA) NEGATIVE Urine Ketones NEGATIVE Urine Occult Blood NEGATIVE Urine Nitrite NEGATIVE Urine Bilirubin NEGATIVE Urine Urobilinogen 0.2 (NORMAL) Ur Leukocyte Esterase NEGATIVE Ur Microscopic Review NOT INDICATED Urine Culture Comments NOT INDICATED Urine HCG, Qual NEGATIVE 08/27/19 16:35 WBC RBC Hgb Hct MCV MCH MCHC RDW Plt Count MPV Neut # (Auto) Lymph # (Auto) [place] # (Auto) Eos # (Auto) Baso # (Auto) Absolute Nucleated RBC Nucleated RBC % VBG pH 7.413 H VBG pCO2 38.1 L VBG pO2 33.5 VBG HCO3 23.8 VBG Total CO2 24.9 VBG O2 Saturation 66.2 VBG Base Excess -0.6 Sodium Potassium Chloride Carbon Dioxide Anion Gap BUN Creatinine Estimated GFR (MDRD) Glucose Calcium Total Bilirubin AST ALT Alkaline Phosphatase Total Protein Albumin Globulin Albumin/Globulin Ratio Lipase Urine Color Urine Clarity Urine pH Ur Specific Henry Urine Protein Urine Glucose (UA) Urine Ketones Urine Occult Blood Urine Nitrite Urine Bilirubin Urine Urobilinogen Ur Leukocyte Esterase Ur Microscopic Review Urine Culture Comments Urine HCG, Qual PD MEDICAL DECISION MAKING - ED course ED course: 29-year-old woman presents with left leg pain a month out from a laparoscopy for endometriosis. Sent here to rule out DVT but clinically this is more consistent with a radiculopathy. We will order an ultrasound but treating with ibuprofen and steroids. Departure - Departure Disposition: 01 Home, Self Care Clinical Impression: Lumbar radiculopathy, acute Pain in extremity Qualifiers: Extremity pain location: lower extremity Laterality: left Qualified Code(s): M79.605 - Pain in left leg Condition: Good Record reviewed to determine appropriate education?: Yes Instructions: ED Sciatica Prescriptions: predniSONE [Deltasone] 20 mg PO [id number] #21 tab Comments: You were seen today for leg pain and numbness, the pattern is most consistent with what is called a radiculopathy, pinched nerve in your back. This should hopefully get better with the steroids. Follow-up with your primary care physician and return if worse. There is no evidence of blood clot in your left leg.
[2019-08-27 16:31] LABS: BILIRUBIN,URINE NEGATIVE (NEGATIVE); GLUCOSE, URINE (UA) NEGATIVE (NEGATIVE); KETONES,URINE (UA) NEGATIVE (NEGATIVE); LEUKOCYTE ESTERASE, URINE NEGATIVE (NEGATIVE); NITRITE,URINE NEGATIVE (NEGATIVE); OCCULT BLOOD,URINE NEGATIVE (NEGATIVE); PROTEIN,URINE NEGATIVE (NEGATIVE); UROBILINOGEN,URINE 0.2 (NORMAL) E.U./dL (NORMAL)
[2019-08-27 16:32] LABS: CLARITY,URINE CLEAR (CLEAR)
[2019-08-27 16:33] LABS: HCG UR QUAL NEGATIVE
[2019-08-27 16:42] LABS: BASOPHILS # (AUTO) 0.1 10^3/uL (0.0-0.1); BASOPHILS % (AUTO) 0.7 %; EOSINOPHILS % (AUTO) 0.2 %; HGB - HEMOGLOBIN 12.4 g/dL (12.0-16.0); LYMPHOCYTES # (AUTO) 1.8 10^3/uL (1.5-3.5); LYMPHOCYTES % (AUTO) 17.9 %; MEAN CORPUSCULAR HEMOGLOBIN 28.1 pg (27.0-31.0); MEAN CORPUSCULAR HGB CONC 31.9 g/dL (32.0-36.0); MEAN PLATELET VOLUME 9.6 fL (7.9-10.8); MONOCYTES # (AUTO) 0.5 10^3/uL (0.0-1.0); NEUTROPHILS # (AUTO) 7.5 10^3/uL (1.5-6.6); NEUTROPHILS % (AUTO) 75.8 %; PLT - PLATELET COUNT 374 10^3/uL (130-450); RED BLOOD COUNT 4.42 10^6/uL (4.20-5.40); RED CELL DISTRIBUTION WIDTH 13.1 % (12.0-15.0); WHITE BLOOD COUNT 9.9 x10^3/uL (4.8-10.8)
[2019-08-27 16:44] LABS: VBG BASE EXCESS -0.6 mmol/L (-2 - +2); VBG PCO2 38.1 mmHg (41-51); VBG PH 7.413 (7.31-7.41); VBG PO2 33.5 mmHg (25-47); VBG TOTAL CO2 24.9 mmol/L (24-29)
[2019-08-27 16:53] LABS: ALBUMIN 4.5 g/dL (3.2-5.5); ALBUMIN/GLOBULIN RATIO 1.5 (1.0-2.2); CALCIUM 9.1 mg/dL (8.5-10.3); CREATININE 0.8 mg/dL (0.4-1.0); TOTAL PROTEIN 7.6 g/dL (6.7-8.2)
[2019-08-27] MEDS ORDERED: POTASSIUM CHLORIDE 20 MEQ TABLET PO STA (17:00)
[2019-08-27 18:19] VITALS: BP 140/88
--- NOTE | 2019-08-27 18:33 | Ultrasound Report ---
PROCEDURE: Duplex Ext Veins Left INDICATIONS: leg pain TECHNIQUE: Real-time imaging, as well as color and pulse Doppler interrogation, were performed of the lower extr emity deep veins from the inguinal ligament to the popliteal fossa. COMPARISON: None. FINDINGS: The deep veins are normally compressible, and free of intraluminal thrombus. Color and pu lse Doppler demonstrate normal phasic intraluminal flow. There is normal augmentation response to di stal compression maneuver. IMPRESSION: No DVT found. Reviewed by: Luan Clemente MD on 08/27/2019 6:32 PM PDT Approved by: Luan Clemente MD on 08/27/2019 6:32 PM PDT Station ID: [id number]
== END 2019-08-27 18:05 | disposition home or self-care (01) ==
LOC: ED 15:32
DX: M54.16 Radiculopathy, lumbar region (principal); I10 Essential (primary) hypertension; F17.200 Nicotine dependence, unspecified, uncomplicated
CPT/HCPCS: 36415; 80053; 81003; 81025; 82803; 83690; 85025; 93971; 99284; A9270; J7512; 81001; 87086

== ENCOUNTER 2019-09-06 12:41 | Outpatient (CLI) | payer OTHER ==
--- NOTE | 2019-09-06 14:12 | MRI Report ---
PROCEDURE: Lumbar Spine W/O INDICATIONS: Left-sided sciatica TECHNIQUE: Noncontrast sagittal T1 spin echo and T2 fast echo, sagittal STIR, axial T1 and T2 fast spin echo thr ough the lumbar spine. In cases with scoliosis, additional coronal T2 fast spin echo may be performe d. COMPARISON: None. FINDINGS: Image quality: Excellent. Alignment and Curvature: There is normal bony alignment. Bone Marrow: Marrow is of normal overall signal. No acute vertebral body compression fractures. Facet and posterior elements: Facet arthropathy from L3-L4 through L5-S1 with small facet effusions a nd subchondral cystic change. Spinal Cord: Normal size, signal, and position of the conus. Paraspinous Soft Tissues: No paravertebral masses. Spinal canal and neural foramina: No spinal canal or neural foraminal stenosis at any level. No evide nce of focal nerve root impingement. IMPRESSION: No findings of focal nerve root impingement to explain radicular symptoms. Facet osteoarthropathy from L3-L4 through L5-S1 with small facet effusions and subchondral cystic marianela nge. This is a potential source of nonradicular axial back pain. Reviewed by: Don Murrieta MD on 09/06/2019 2:11 PM PDT Approved by: Don Murrieta MD on 09/06/2019 2:11 PM PDT Station ID: [id number]
== END 2019-09-06 12:42 | disposition home or self-care (01) ==
LOC: DI 12:41
DX: M47.816 Spondylosis without myelopathy or radiculopathy, lumbar region (principal); M47.817 Spondylosis without myelopathy or radiculopathy, lumbosacral region; M25.48 Effusion, other site; M25.80 Other specified joint disorders, unspecified joint
CPT/HCPCS: 72148

== ENCOUNTER 2020-01-16 17:45 | Emergency (ER) | payer OTHER ==
[2020-01-16] MEDS ORDERED: KETOROLAC 60 MG/2 ML VIAL IM STA (18:08)
--- NOTE | 2020-01-16 18:14 | ED Physician Documentation ---
History of Present Illness - Stated complaint Stated Complaint: FOOT INJ, RIB INJ, FALL - Chief complaint Chief Complaint: Trauma Ch/Bk - History obtained from History obtained from: Patient - History of Present Illness Timing: How many days ago (17) - Additonal information Additional information: 29-year-old female presents to the emergency department for evaluation of right- sided rib pain as well as right lower leg and ankle pain after a fall 17 days ago. She reports to me that she was carrying a dog down some stairs and fell from the last 4. Since then she has had pain in the right lower and anterior ribs. She has had no cough or hemoptysis. She denies that she is short of breath. She also reports that after the fall she had a very large area of swelling on the anterior lower leg with associated bruising. Since then the bruising has diminished but she continues to have a large hematoma over the mid lower leg. She is also having pain on the right medial ankle. She has not taken anything for pain because she forgets. She reports that she was seen at [facility] without any concerning findings but would like the issue further delineated today Review of Systems Constitutional: reports: Reviewed and negative Eyes: reports: Reviewed and negative Ears: reports: Reviewed and negative Nose: reports: Reviewed and negative Cardiac: reports: Reviewed and negative Respiratory: reports: Reviewed and negative GI: reports: Reviewed and negative : reports: Reviewed and negative Skin: reports: Abrasion (s) (right lower leg) Musculoskeletal: reports: Extremity pain (right lower leg), Joint pain (right ankle) Neurologic: reports: Reviewed and negative Psychiatric: reports: Reviewed and negative PD PAST MEDICAL HISTORY - Past Medical History Past Medical History: Yes Cardiovascular: Hypertension Respiratory: None Neuro: None Endocrine/Autoimmune: None GI: None LICENSE EXAMINER: Endometriosis : Other HEENT: None Psych: Depression, Anxiety Musculoskeletal: None Derm: None - Past Surgical History Past Surgical History: Yes General:  /LICENSE EXAMINER: Other - Present Medications Home Medications: Ambulatory Orders Medication Instructions Recorded Confirmed Fluticasone [Flonase] 1 spray IN DAILY 12/23/17 07/30/19 Ibuprofen [Motrin] 800 mg PO Q8H PRN #30 tablet 04/25/18 07/30/19 Acetaminophen [Tylenol] 650 mg PO Q6H PRN 05/01/19 05/01/19 Dextroamphetamine/Amphetamine 20 mg PO DAILY 05/01/19 07/30/19 [Adderall Xr 20 mg Capsule] Dextroamphetamine/Amphetamine 5 mg PO DAILY 05/01/19 07/30/19 [Adderall Xr 5 mg Capsule] Escitalopram Oxalate [Lexapro] 5 mg PO DAILY 05/01/19 07/30/19 Escitalopram [Lexapro] 10 mg PO DAILY 05/01/19 07/30/19 Levonorgestrel 20 Mcg/24H [Mirena] 1 each IY DAILY 05/01/19 07/30/19 Levonorgestrel-Ethin Estradiol 1 tab PO DAILY 07/30/19 07/30/19 [Orsythia-28 Tablet] predniSONE [Deltasone] 20 mg PO [id number] #21 tab 08/27/19 Ibuprofen [Motrin] 600 mg PO Q6H PRN #30 tab 01/16/20 - Allergies Allergies/Adverse Reactions: Allergies Allergy/AdvReac Type Severity Reaction Status Date / Time nickel Allergy Rash Verified 01/16/20 17:53 codeine AdvReac Itching Verified 01/16/20 17:53 thomas AdvReac Rash Verified 01/16/20 17:53 - Social History Does the pt smoke?: Yes Smoking Status: Current every day smoker Does the pt drink ETOH?: Yes Does the pt have substance abuse?: No - Immunizations Immunizations are current?: Yes - POLST Patient has POLST: No PD ED PE EXPANDED - General General: Alert, No acute distress, Well developed/nourished - Cardiac Cardiac: Regular Rate, Regular Rhythm, Radial strong equal, Pedal strong equal, Cap refill < 2 sec - Respiratory Respiratory: Clear to ausultation jonn. No: Distress, Labored - Back Back: Other (Tenderness to palpation right lower and anterior ribs. No ecchymosis. No crepitus. Patient able to take full breaths.) - Extremities Extremities: Right leg (Extensive ecchymosis right lower anterior leg. A palpable hematoma right lower anterior leg measuring approximately 2 x 3 cm. Mild tenderness right medial ankle just below the malleolus. Full range of motion of ankle in all planes. Normal inversion eversion, dorsi and plantar flexion. mild limp) Results - Vitals Vitals: Vital Signs - 24 hr 01/16/20 17:49 Temperature 36.6 C Heart Rate 98 Respiratory 18 Rate Blood Pressure 149/87 H O2 Saturation 98 Oxygen O2 Source Room air - Rads (name of study) right ribs chest Radiology: Final report received (No acute fractures cardiopulmonary process) right tib fib Radiology: Final report received (No acute fractures or dislocation) right ankle Radiology: Final report received (No acute fracture or dislocation) PD MEDICAL DECISION MAKING - ED course Complexity details: reviewed old records, reviewed results, re-evaluated patient, considered differential, d/w patient ED course: 29-year-old female presents the emergency department for evaluation of right lower anterior rib pain after fall down 4 stairs about 17 days ago. She also sustained a fairly large abrasion to the right lower leg and elizondo area with a palpable hematoma present. She has had persistent pain in the lower leg and ankle area since the fall but is able to walk unassisted with only a mild limp. X-rays of the chest and right ribs show no acute fracture, cardiopulmonary process. Certainly no pneumothorax or focal opacity. I did also do x-ray of her right tib-fib and ankle and again no fractures noted. She does have a large area of contusion on the right lower leg which is likely the cause of the pain there. I also suspect that the pain in the right ribs is most likely contusion. She may have a very occult fracture that is not seen on x-ray today but management would be the same. She was given 60 mg of Toradol here in the emergency department with marked improvement in relief of pain. Patient will be discharged home with prescription for ibuprofen. Encouraged close follow-up w [facility]. Emergent and worrisome return precautions discussed Departure - Departure Disposition: 01 Home, Self Care Clinical Impression: Contusion of right lower leg, initial encounter Fall down stairs Qualifiers: Encounter type: initial encounter Qualified Code(s): W10.8XXA - Fall (on) (from) other stairs and steps, initial encounter Contusion of rib on right side Qualifiers: Encounter type: initial encounter Qualified Code(s): S20.211A - Contusion of right front wall of thorax, initial encounter Condition: Stable Record reviewed to determine appropriate education?: Yes Instructions: ED Contusion Soft Tissue, ED Contusion Chest Wall Ch Follow-Up: TERRI MARTINEZ MD [Primary Care Provider] - Prescriptions: Ibuprofen [Motrin] 600 mg PO Q6H PRN #30 tab PRN Reason: Pain Comments: Gabriella, I am glad that the medication we gave you here in the emergency department made you feel better. We gave you a medication called Toradol. I have prescribed ibuprofen for you to take at home. Please take 3 times a day with food as needed for pain. The x-rays of your chest, ribs, right lower leg and ankle do not show any cute fractures or broken bones. However you do have obvious contusions. These are simply bruises within the soft tissue. I suspect that your pain will continue to slowly improve over the next few weeks. If at any point you have difficulty breathing, have bloody sputum, high fevers or are unable to walk please return to the ER for second look
--- NOTE | 2020-01-16 19:28 | XRAY Report ---
PROCEDURE: Tib/Fib RT INDICATIONS: fall; r/o fx TECHNIQUE: 2 views of the tibia and fibula were acquired. COMPARISON: Same day right ankle radiographs. FINDINGS: Bones: No fractures or dislocations. No suspicious bony lesions. Soft tissues: No suspicious soft tissue calcifications or masses. IMPRESSION: No acute osseous abnormality. Reviewed by: René Zaldivar MD on 01/16/2020 7:27 PM PST Approved by: René Zaldivar MD on 01/16/2020 7:27 PM PST Station ID: [id number]
--- NOTE | 2020-01-16 19:28 | XRAY Report ---
PROCEDURE: Ankle 2 View RT INDICATIONS: fall, r/o fx TECHNIQUE: 2 views of the ankle were acquired. COMPARISON: Same day right tibia and fibula. FINDINGS: Bones: No fractures or dislocations. Ankle mortise is normally aligned. No suspicious bony lesions . Soft tissues: No tibiotalar joint effusion. Achilles tendon appears normal. IMPRESSION: No acute osseous abnormality. Reviewed by: René Zaldivar MD on 01/16/2020 7:26 PM PST Approved by: René Zaldivar MD on 01/16/2020 7:26 PM PST Station ID: [id number]
--- NOTE | 2020-01-16 19:30 | XRAY Report ---
PROCEDURE: Ribs w/PA Chest RT INDICATIONS: fall r/o fx TECHNIQUE: 2 views of the right ribs were acquired, along with a single view chest. COMPARISON: CXR 04/25/2018.. FINDINGS: Surgical changes and devices: None. Bones and chest wall: No fractures or dislocations. No suspicious bony lesions. Overlying soft tis sues appear unremarkable. Lungs and pleura: No pleural effusions or pneumothorax. Lungs appear clear. Mediastinum: Mediastinal contours appear normal. Heart size is normal. IMPRESSION: No acute cardiopulmonary abnormality. No displaced right-sided rib fracture. Reviewed by: René Zaldivar MD on 01/16/2020 7:29 PM PST Approved by: René Zaldivar MD on 01/16/2020 7:29 PM PST Station ID: [id number]
[2020-01-16 19:49] VITALS: BP 141/66
== END 2020-01-16 19:52 | disposition home or self-care (01) ==
LOC: ED 17:45
DX: S20.211A Contusion of right front wall of thorax, initial encounter (principal); S80.11XA Contusion of right lower leg, initial encounter; W10.9XXA Fall (on) (from) unspecified stairs and steps, initial encounter; Y93.K9 Activity, other involving animal care; I10 Essential (primary) hypertension; F17.200 Nicotine dependence, unspecified, uncomplicated
CPT/HCPCS: 96372; 99284

== ENCOUNTER 2020-06-12 09:12 | Outpatient (CLI) | payer OTHER ==
[2020-06-12] MEDS ORDERED: GADOBUTROL 10 MMOL/10 ML VIAL ONE (09:48)
[2020-06-12] MEDS ORDERED: GADOBUTROL 10 MMOL/10 ML VIAL IVP ONE (11:21)
--- NOTE | 2020-06-12 14:57 | MRI Report ---
PROCEDURE: Pelvis W/WO INDICATIONS: LEFT LEG PAIN, ENDOMETRIOSIS CONTRAST: IV CONTRAST: Gadavist ml: 8.5 TECHNIQUE: Coronal ultra fast SE, sagittal breath-hold T2 FSE; axial T1 FSE with and without fat saturation thro ugh the pelvis. Optional long- and short-axis uterine nonbreath-hold T2 FSE through the uterus. Sag ittal or axial dynamic ultra fast GE during administration of contrast. Post-contrast axial or coron al ultra fast GE / 2-D spoiled GE with fat saturation from the iliac crests to the symphysis. Option al diffusion weighted imaging and ADC may be performed. COMPARISON: None. FINDINGS: Image quality: Excellent. Uterus: Uterus is normal in size, and retroverted in position. Endometrium is normal in thickness. Junctional zone is normal in thickness at 12 mm or less. Adnexa: Both ovaries are normal in size, without suspicious cystic or solid lesions. Urinary system: Bladder wall is normal in thickness. Distal ureters are non distended. Urethra yaya ears normal in morphology. Nodes and vessels: No pelvic or inguinal adenopathy by size criteria. Iliac vessels are normal in s ize. Bowel and peritoneum: No pathologic free pelvic fluid. Inferior colon and small bowel loops are nor mal in caliber. Soft tissues: No inguinal hernias. No findings of pelvic floor incompetence in the absence of provo cation. Bones: Marrow demonstrates normal overall signal. IMPRESSION: Bladder and uterus appear normal, the uterus is retroverted. Endometrial lining thicknes s is normal. No adnexal cystic or solid mass is found. By this examination a focus of endometriosis i s not identified. Overall, normal for age. No inflammation or mass is seen impinging on the left lumb osacral plexus to explain left-sided leg pain. Reviewed by: Luan Clemente MD on 06/12/2020 2:56 PM PDT Approved by: Luan Clemente MD on 06/12/2020 2:56 PM PDT Station ID: [id number]
== END 2020-06-12 09:13 | disposition home or self-care (01) ==
LOC: DI 09:12
PROVIDERS: ATTEND Psychiatry & Neurology Neuromuscular Medicine
DX: M79.605 Pain in left leg (principal); N80.9 Endometriosis, unspecified
CPT/HCPCS: 72197; A9585